=== PATIENT | female | born 1990 | race Hispanic/Latino ===

== ENCOUNTER 2016-10-14 10:30 | Emergency (ER) | payer OTHER, SELFPAY ==
[2016-10-14 10:49] LABS: Bilirubin Negative (Negative); Blood, Urine Moderate (Negative); Glucose, Urine (Dipstick) Negative (Negative); Ketone, Urine Negative (Negative); Nitrite Positive (Negative); Protein, Urine (Dipstick) 100 mg/dL (Neg-Trace); Urobilinogen 0.2 mg/dL (0.2-1.0)
[2016-10-14 10:57] LABS: Bacteria/HPF 2+ HPF (None Seen); RBC/HPF 0-3 HPF (0-3); Squamous Epithelial 0-3 HPF (0-3)
--- NOTE | 2016-10-14 11:20 | PICIS ---
[facility] EMERGENCY RECORD TRIAGE (10:34 CTUR) TRIAGE NOTES: Pt reports having low back pain for the past three days qwith worsening today. (10:34 CTUR) PATIENT: NAME: Vinicius Spence, AGE: 26, GENDER: female, : Sat 1990, TIME OF GREET: WedOct 14, 2016 10:30, PREFERRED LANGUAGE: Arabic, ETHNICITY: or , ECODE BILLING MAP: [facility], SSN: [id number], Zip Code: [address], KG WEIGHT: 58.97 (est.), , , PERSON ID: [id number]. (10:34 CTUR) PHONE: , PAYMENT: SJX Self Pay. (11:00) COMPLAINT: Low Back Pain. (10:34 CTUR) ADMISSION: URGENCY: 3 Urgent, ADMISSION SOURCE: Home, TRANSPORT: CAR, BED: TRIAGE. (10:34 CTUR) SIRS SCORING: Heart Rate 55-109 (0), Temp range 96.8-101.1 (0), respiratory rate 12-24 (0), Mental Status altered: no (0). (10:38 CTUR) TRIAGE SCREENING: Patient denies suicidal ideation, Patient denies presence of domestic violence. (10:38 CTUR) LMP: Last menstrual period: 10/08/2016. (10:38 CTUR) PROVIDERS: TRIAGE NURSE: Angie Vila RN. (10:34 CTUR) VITAL SIGNS: BP 131/82, Pulse 104, Resp 16, Temp 98.3, (Oral), Pain 8, O2 Sat 99, on Room Air, Time 10/14/2016 10:34. (10:34 CTUR) PREVIOUS VISIT ALLERGIES: NKDA. (10:34 CTUR) NKDA. (10:38 CTUR) KNOWN ALLERGIES NKDA CURRENT MEDICATIONS (10:39 CTUR) None VITAL SIGNS VITAL SIGNS: BP: 131/82, Pulse: 104, Resp: 16, Temp: 98.3 (Oral), Pain: 8, O2 sat: 99 on Room Air, Time: 10/14/2016 10:34. (10:34 CTUR) BP: 117/75, Pulse: 101, Resp: 16, Pain: 8, O2 sat: 96 on Room Air, Time: 10/14/2016 10:48. (10:48 CTUR) BP: 124/82, Pulse: 101, Resp: 16, Temp: 98.3 (Oral), Pain: 8, O2 sat: 97 on Room Air, Time: 10/14/2016 11:05. (11:05 CTUR) NURSING ASSESSMENT: GENITOURINARY (10:40 CTUR) CONSTITUTIONAL: Complex assessment performed, Patient arrives ambulatory, Gait steady, History obtained from patient, Patient appears comfortable, Patient cooperative, Patient alert, Oriented to person, place and time, Skin warm, Skin dry, Skin normal in color, Mucous membranes pink, Mucous membranes moist, Patient is well-groomed, Patient complains of Low back Pain, Patient reports for the past three days she has had severe low back pain with burning with urination and frequency pt states "I pee every ten minutes". PAIN FEMALE: Nothing has been tried to alleviate the &a-1R&a+25V*p+0X*s4514E*c202B*c15G*c2P*p-0X&a-25V&a+1R Name: Vinicius Spence : 1990 F26 MedRec: [id number] AcctNum: [id number] Prepared: WedOct 14, 2016 11:24 by Interface Page [address] [facility] EMERGENCY RECORD pain, aching pain, Low back, on a scale 0-10 patient rates pain as 8. NONVERBAL PAIN: Non-Verbal pain assessment findings include: No non-verbal complaints while at rest (0), Non-Verbal complaints present with movement (1), Facial Grimaces not present at rest (0), Facial grimaces present with movement (1), Bracing not present at rest (0), Bracing not present with movement (0), Restlessness not present at rest (0), Restlessness not present with movement (0), Rubbing not present at rest (0), Rubbing not present with movement (0), Result: 2. GENITOURINARY FEMALE: Associated with urinary complaints, burning, frequency, Date and time of last void: 10/14/2016 10:41, amount: 100mL, no associated vaginal discharge, no associated vaginal bleeding. ABDOMEN: Abdomen assessment findings include abdomen symmetrical, Abdomen soft, non-tender. SAFETY: Side rails up, Cart/Stretcher in lowest position, Call light within reach, Hospital ID band on. NURSING PROCEDURE: DISCHARGE NOTE (11:11 CTUR) DISCHARGE: Patient discharged to home, ambulating without assistance, driving self, unaccompanied, Summary of Care printed/ provided, Transition record given to patient, Discharge instructions given to patient, Simple or moderate discharge teaching performed, by NEDRA Brito, Prescriptions given and instructions on side effects given, Above person(s) verbalized understanding of discharge instructions and follow-up care, Patient treated and evaluated by physician. BELONGINGS: Belongings and valuables with patient upon arrival to the Emergency Department include:, Belongings and valuables with patient at time of discharge include:, Belongings remain with patient, Valuables remain with patient. SAFETY: Side rails up, Cart/Stretcher in lowest position, Call light within reach, Hospital ID band on. NURSING PROCEDURE: URINE COLLECTION (10:38 AHOO) PATIENT IDENTIFIER: Patient actively involved in identification process, Patient's identity verified by patient stating name, Patient's identity verified by patient stating date, Patient's identity verified by hospital ID bracelet. URINE COLLECTION FEMALE: Urine collection indicated for flank pain, Urine collected by mid-stream clean catch, Output amount (mL) 30, urine yellow in color, and cloudy, sediment noted, Specimen labeled in the presence of the patient and sent to lab, Specimen obtained for culture labeled in the presence of the patient and sent to lab. ORDER DETAILS &a-1R&a+25V*p+0X*u5180S*c202B*c15G*c2P*p-0X&a-25V&a+1R Name: Sylwia Spenceyuridia Luong : 1990 F26 MedRec: [id number] AcctNum: [id number] Prepared: WedOct 14, 2016 11:24 by Interface Page [address] [facility] EMERGENCY RECORD Order Name: Culture, Urine, Status: Active, Time: 10:56 10/14/2016, User: PAT, - Ordered for: MD Menchaca Jason, - Entered by: MD Menchaca Jason - WedOct 14, 2016 10:56, - Quantity: 1, Order Name: Test, Urine ([facility]), Status: Active, Time: 10:53 10/14/2016, User: PAT, - Ordered for: MD Menchaca Jason, - Entered by: MD Menchaca Jason - WedOct 14, 2016 10:53, - Quantity: 1, Order Name: Urinalysis with Microscopic, Status: Active, Time: 10:39 10/14/2016, User: [facility], - Ordered for: MD Menchaca Jason, - Entered by: NEDRA Mart, JanuaryOct 14, 2016 10:39, - Quantity: 1. HPI FLANK PAIN (10:42 [facility]) CHIEF COMPLAINT: Patient presents for evaluation of flank pain, on the right. HISTORIAN: History provided by patient, 26F presents to the ED with complaints of right flank pain that started today. States that for the past two days she has had UTI symptoms of burning and frequency. Denies abdominal pain. Has mild nausea, denies vomiting. Denies changes in bowel habits. LOCATION FEMALE: Symptoms are localized, most severe in the right flank. QUALITY: Pain is sharp in nature. TIME COURSE: Gradual onset of symptoms, Symptoms are worsening. ASSOCIATED WITH FEMALE: Associated with urinary tract infection signs or symptoms, dysuria, hesitancy. EXACERBATED BY: Patient's condition exacerbated by nothing. RELIEVED BY: Patient's condition relieved by nothing. ROS (10:47 [facility]) CONSTITUTIONAL: Negative constitutional review of systems, Historian denies chills, denies fever. EYES: Negative eye review of systems, Historian denies eye pain, denies vision changes. ENT: Negative ears, nose, throat review of systems, Historian denies rhinorrhea, denies sore throat, denies voice changes. CARDIOVASCULAR: Negative cardiovascular review of systems, Historian denies chest pain, denies palpitations. RESPIRATORY: Negative respiratory review of systems, Historian denies cough, denies shortness of breath. GI: Negative gastrointestinal review of systems, Historian denies abdominal pain, denies constipation, denies diarrhea, denies nausea, denies vomiting. GENITOURINARY FEMALE: Historian reports dysuria, reports frequency. Right flank pain. MUSCULOSKELETAL: Negative musculoskeletal review of systems, &a-1R&a+25V*p+0X*l6887N*c202B*c15G*c2P*p-0X&a-25V&a+1R Name: Vinicius Spence : 1990 F26 MedRec: [id number] AcctNum: [id number] Prepared: WedOct 14, 2016 11:24 by Interface Page [address] [facility] EMERGENCY RECORD Historian denies back pain, denies fall, denies injury. SKIN: Negative skin review of systems, Historian denies rash, denies skin changes. NEUROLOGIC: Negative neurologic review of systems, Historian denies headache, denies mental status changes, denies paralysis, denies paresthesias, denies sensory changes. HEMO/LYMPHATIC: Normal hematologic/lymphatic system review, Historian denies abnormal blood clotting. ALLERGIC/IMMUNOLOGIC: Normal allergy/immunologic system review, Historian denies frequent infections. PAST MEDICAL HISTORY (10:38 CTUR) MEDICAL HISTORY: Flu vaccine not up to date, Tetanus not up to date, Pneumococcal vaccine not up to date, No past medical history,. verified 10/14/16. FEMALE SURGICAL HISTORY: Surgical history of section, Notes: X 1. verified 10/14/16. PSYCHIATRIC HISTORY: No previous psychiatric history,. verified 10/14/16. SOCIAL HISTORY: Patient drinks socially, Patient has no smoking history, Patient denies drug use. verified 10/14/16. FAMILY HISTORY: Family history is non-contributory to this case. ((REVIEWED 02/02/14). PHYSICAL EXAM (10:47 [facility]) CONSTITUTIONAL: Vital signs reviewed, Patient afebrile, Pulse normal, Blood pressure normal, Respiratory rate normal, Patient appears non toxic, Patient appears pain free, Patient alert and oriented to person, place and time. HEAD: Head exam normal, Head exam included findings of head atraumatic, normocephalic. EYES: Eye exam normal, Eye exam included findings of eyelids normal to inspection, Pupils equally round and reactive to light, Extraocular muscles intact, no nystagmus. ENT: ENT exam normal, Ear exam normal, external ear normal, tympanic membranes normal, no bleeding, Pharynx exam normal, Uvula exam normal, Tonsil exam normal, Mouth exam normal, mucous membranes moist, teeth normal. NECK: Neck exam normal, Neck exam included findings of normal range of motion, Trachea midline, no meningeal signs, no cervical adenopathy, no tenderness. RESPIRATORY CHEST: Respiratory and chest exam normal, Respiratory exam included findings of no respiratory distress, Breath sounds clear. CARDIOVASCULAR: Cardiovascular assessment normal, Cardiovascular exam included findings of heart rate regular rate and rhythm, Heart sounds normal. ABDOMEN FEMALE: Abdominal exam included findings of abdomen nontender, Bowel sounds normal, no distension, no mass, no pulsatile masses, no peritoneal signs, no rigidity, no guarding, no rebound, &a-1R&a+25V*p+0X*v3936R*c202B*c15G*c2P*p-0X&a-25V&a+1R Name: Vinicius Spence : 1990 F26 MedRec: [id number] AcctNum: [id number] Prepared: WedOct 14, 2016 11:24 by Interface Page [address] [facility] EMERGENCY RECORD Rovsing's sign absent. BACK: Back exam normal, Back exam included findings of normal inspection, range of motion normal, Costovertebral angle tenderness, on the right, no tenderness. UPPER EXTREMITY: Upper extremity exam normal, Upper extremity exam included findings of inspection normal, Range of motion normal, Motor strength normal, Sensation intact, Radial pulse normal. LOWER EXTREMITY: Lower extremity exam normal, Lower extremity exam included findings of inspection normal, Range of motion normal, Motor strength normal, Sensation intact, Posterior tibial pulse normal, Pedal pulse normal. NEURO: Neuro exam normal, Neuro exam findings include patient oriented to person, place and time, Speech normal, Gait normal, Cranial nerves intact, no focal motor deficits, no focal sensory deficits. SKIN: Skin exam normal, Skin exam included findings of skin warm, dry, and normal in color, no rash. PSYCHIATRIC: Psychiatric exam normal, Normal affect. EVENTS TRANSFER: Triage to Emergency Triage. (WedOct 14, 2016 10:34 CTUR) Emergency Triage to Emergency Room -02. (10:34 CTUR) Removed from Emergency Emergency Room -02. (11:13 CTUR) DOCTOR NOTES (11:03 [facility]) TEXT: patient presented with findings consistent with pyelonephritis. No abdominal pain to raise concern for appendicitis or cholecystitis. Tolerating PO, appropriate for outpatient management. PATIENT STATUS: Patient has improved since arrival to emergency department. PATIENT PLAN: The patient will be discharged, The patient will follow up with primary care physician. DATA REVIEWED: Lab data reviewed. PROBLEM LIST No recorded problems DIAGNOSIS (11: [facility]) FINAL: PRIMARY: pyelonephritis. DISPOSITION PATIENT: Disposition Type: Discharge, Disposition: *Discharge Home. (11: [facility]) Patient left the department. (11:13 CT) INSTRUCTION (11: [facility]) DISCHARGE: PYELONEPHRITIS, FEMALE (ADULT). SPECIAL: Drink lots of fluids. Can keep taking the Azo. Follow &a-1R&a+25V*p+0X*f6158B*c202B*c15G*c2P*p-0X&a-25V&a+1R Name: Vinicius Spence : 1990 F26 MedRec: [id number] AcctNum: [id number] Prepared: WedOct 14, 2016 11:24 by Interface Page [address] [facility] EMERGENCY RECORD up with your regular doctor. Return if symptoms do not improve. PRESCRIPTION (11:00 [facility]) Keflex: CAPSULE (HARD, SOFT, ETC.) : 500 mg : ORAL : Quantity: 1 Unit: tab(s) Route: ORAL Schedule: 3 times a day Dispense: 30 May substitute. Refills: No Refills . NOTES: No refills. IMAGING *DISCHARGE INSTRUCTIONS RECEIPT: Image captured from scanner. (11:12 CT) *SUPPLY CHARGE SHEET: Image captured from scanner. (11:13 CT) ADMIN (11:05 [facility]) DIGITAL SIGNATURE: MD Menchaca Jason. Andersen: [facility]=NEDRA Mart, January CTUR=SINCERE Vila, Angie [facility]=MD Menchaca Jason &a-1R&a+25V*p+0X*m2655X*c202B*c15G*c2P*p-0X&a-25V&a+1R Name: Gail Spencegrace Luong : 1990 F26 MedRec: [id number] AcctNum: [id number] Prepared: Holly Oct 14, 2016 11:24 by Interface Page 6 of 6 pMD MTDD
--- NOTE | 2016-10-14 11:54 | ERRECORD ---
[facility] EMERGENCY RECORD HPI FL[facility] (10:42 [facility] CHIEF COMPLAINT: Patient presents for evaluation of flank pain, on the right. HISTORIAN: History provided by patient, 26F presents to the ED with complaints of right flank pain that started today. States that for the past two days she has had UTI symptoms of burning and frequency. Denies abdominal pain. Has mild nausea, denies vomiting. Denies changes in bowel habits. LOCATION FEMALE: Symptoms are localized, most severe in the right flank. QUALITY: Pain is sharp in nature. TIME COURSE: Gradual onset of symptoms, Symptoms are worsening. ASSOCIATED WITH FEMALE: Associated with urinary tract infection signs or symptoms, dysuria, hesitancy. EXACERBATED BY: Patient's condition exacerbated by nothing. RELIEVED BY: Patient's condition relieved by nothing. ROS (10:47 [facility]) CONSTITUTIONAL: Negative constitutional review of systems, Historian denies chills, denies fever. EYES: Negative eye review of systems, Historian denies eye pain, denies vision changes. ENT: Negative ears, nose, throat review of systems, Historian denies rhinorrhea, denies sore throat, denies voice changes. CARDIOVASCULAR: Negative cardiovascular review of systems, Historian denies chest pain, denies palpitations. RESPIRATORY: Negative respiratory review of systems, Historian denies cough, denies shortness of breath. GI: Negative gastrointestinal review of systems, Historian denies abdominal pain, denies constipation, denies diarrhea, denies nausea, denies vomiting. GENITOURINARY FEMALE: Historian reports dysuria, reports frequency. Right flank pain. MUSCULOSKELETAL: Negative musculoskeletal review of systems, Historian denies back pain, denies fall, denies injury. SKIN: Negative skin review of systems, Historian denies rash, denies skin changes. NEUROLOGIC: Negative neurologic review of systems, Historian denies headache, denies mental status changes, denies paralysis, denies paresthesias, denies sensory changes. HEMO/LYMPHATIC: Normal hematologic/lymphatic system review, Historian denies abnormal blood clotting. ALLERGIC/IMMUNOLOGIC: Normal allergy/immunologic system review, Historian denies frequent infections. PAST MEDICAL HISTORY (10:38 CTUR) MEDICAL HISTORY: Flu vaccine not up to date, Tetanus not up to date, Pneumococcal vaccine not up to date, No past medical history,. verified 10/14/16. FEMALE SURGICAL HISTORY: Surgical history of &a-1R&a+25V*p+0X*e1323L*c202B*c15G*c2P*p-0X&a-25V&a+1R Name: Vinicius Spence : 1990 F26 MedRec: [id number] AcctNum: [id number] Prepared: WedOct 14, 2016 11:18 by Interface Page 1 of 3 pMD [facility] EMERGENCY RECORD section, Notes: X 1. verified 10/14/16. PSYCHIATRIC HISTORY: No previous psychiatric history,. verified 10/14/16. SOCIAL HISTORY: Patient drinks socially, Patient has no smoking history, Patient denies drug use. verified 10/14/16. FAMILY HISTORY: Family history is non-contributory to this case. ((REVIEWED 02/02/14). KNOWN ALLERGIES NKDA CURRENT MEDICATIONS (10:39 CTUR) None VITAL SIGNS VITAL SIGNS: BP: 131/82, Pulse: 104, Resp: 16, Temp: 98.3 (Oral), Pain: 8, O2 sat: 99 on Room Air, Time: 10/14/2016 10:34. (10:34 CTUR) BP: 117/75, Pulse: 101, Resp: 16, Pain: 8, O2 sat: 96 on Room Air, Time: 10/14/2016 10:48. (10:48 CTUR) BP: 124/82, Pulse: 101, Resp: 16, Temp: 98.3 (Oral), Pain: 8, O2 sat: 97 on Room Air, Time: 10/14/2016 11:05. (11:05 CTUR) PHYSICAL EXAM (10:47 [facility]) CONSTITUTIONAL: Vital signs reviewed, Patient afebrile, Pulse normal, Blood pressure normal, Respiratory rate normal, Patient appears non toxic, Patient appears pain free, Patient alert and oriented to person, place and time. HEAD: Head exam normal, Head exam included findings of head atraumatic, normocephalic. EYES: Eye exam normal, Eye exam included findings of eyelids normal to inspection, Pupils equally round and reactive to light, Extraocular muscles intact, no nystagmus. ENT: ENT exam normal, Ear exam normal, external ear normal, tympanic membranes normal, no bleeding, Pharynx exam normal, Uvula exam normal, Tonsil exam normal, Mouth exam normal, mucous membranes moist, teeth normal. NECK: Neck exam normal, Neck exam included findings of normal range of motion, Trachea midline, no meningeal signs, no cervical adenopathy, no tenderness. RESPIRATORY CHEST: Respiratory and chest exam normal, Respiratory exam included findings of no respiratory distress, Breath sounds clear. CARDIOVASCULAR: Cardiovascular assessment normal, Cardiovascular exam included findings of heart rate regular rate and rhythm, Heart sounds normal. ABDOMEN FEMALE: Abdominal exam included findings of abdomen nontender, Bowel sounds normal, no distension, no mass, no pulsatile masses, no peritoneal signs, no rigidity, no guarding, no rebound, Rovsing's sign absent. BACK: Back exam normal, Back exam included findings of normal &a-1R&a+25V*p+0X*u5017G*c202B*c15G*c2P*p-0X&a-25V&a+1R Name: Vinicius Spence : 1990 F26 MedRec: [id number] AcctNum: [id number] Prepared: WedOct 14, 2016 11:18 by Interface Page 2 of 3 pMD [facility] EMERGENCY RECORD inspection, range of motion normal, Costovertebral angle tenderness, on the right, no tenderness. UPPER EXTREMITY: Upper extremity exam normal, Upper extremity exam included findings of inspection normal, Range of motion normal, Motor strength normal, Sensation intact, Radial pulse normal. LOWER EXTREMITY: Lower extremity exam normal, Lower extremity exam included findings of inspection normal, Range of motion normal, Motor strength normal, Sensation intact, Posterior tibial pulse normal, Pedal pulse normal. NEURO: Neuro exam normal, Neuro exam findings include patient oriented to person, place and time, Speech normal, Gait normal, Cranial nerves intact, no focal motor deficits, no focal sensory deficits. SKIN: Skin exam normal, Skin exam included findings of skin warm, dry, and normal in color, no rash. PSYCHIATRIC: Psychiatric exam normal, Normal affect. DOCTOR NOTES (11:03 [facility]) TEXT: patient presented with findings consistent with pyelonephritis. No abdominal pain to raise concern for appendicitis or cholecystitis. Tolerating PO, appropriate for outpatient management. PATIENT STATUS: Patient has improved since arrival to emergency department. PATIENT PLAN: The patient will be discharged, The patient will follow up with primary care physician. DATA REVIEWED: Lab data reviewed. PROBLEM LIST No recorded problems DIAGNOSIS (: [facility]) FINAL: PRIMARY: pyelonephritis. PRESCRIPTION (11: [facility]) Keflex: CAPSULE (HARD, SOFT, ETC.) : 500 mg : ORAL : Quantity: 1 Unit: tab(s) Route: ORAL Schedule: 3 times a day Dispense: 30 May substitute. Refills: No Refills . NOTES: No refills. DISPOSITION PATIENT: Disposition Type: Discharge, Disposition: *Discharge Home. (11: [facility]) Patient left the department. (11:13 [facility]) Andersen: YADIRA=SINCERE Vila, Angie [facility]=MD Bernarda, John &a-1R&a+25V*p+0X*d6357P*c202B*c15G*c2P*p-0X&a-25V&a+1R Name: Vinicius Spence : 1990 F26 MedRec: [id number] AcctNum: [id number] Prepared: WedOct 14, 2016 11:18 by Interface Page 3 of 3 pMD MTDD
== END 2016-10-14 11:09 | disposition home or self-care (01) ==
LOC: BURERS 10:30
DX: N12 Tubulo-interstitial nephritis, not specified as acute or chronic (principal)
CPT/HCPCS: 81001; 81025; 87077; 87086; 87186; 99284

== ENCOUNTER 2017-04-27 04:24 | Emergency (ER) | payer OTHER ==
[2017-04-27] MEDS ORDERED: Acetaminophen 500 MG TAB ONE (05:11)
[2017-04-27 05:16] LABS: Bilirubin Negative (Negative); Blood, Urine Negative (Negative); Clarity Slightly Cloudy (Clear); Glucose, Urine (Dipstick) Negative (Negative); Leukocyte Trace (Negative); Nitrite Negative (Negative); Protein, Urine (Dipstick) Negative (Neg-Trace); pH, Urine 6.5 (5.0-9.0)
[2017-04-27 05:25] LABS: Bacteria/HPF Rare-Few HPF (None Seen); RBC/HPF None Seen HPF (0-3); Squamous Epithelial 0-3 HPF (0-3); WBC/HPF 0-3 HPF (0-3)
== END 2017-04-27 06:01 | disposition home or self-care (01) ==
LOC: BURERS 04:24
DX: O47.02 False labor before 37 completed weeks of gestation, second trimester (principal); Z3A.16 16 weeks gestation of pregnancy
CPT/HCPCS: 81003; 81015; 96360

== ENCOUNTER 2021-04-21 16:09 | Outpatient (CLI) | payer OTHER | END 2021-04-21 16:10 | disposition home or self-care (01) | LOC: BURRAD 16:09 | PROVIDERS: ATTEND Clinical Nurse Specialist Medical-Surgical | DX: R05 Cough (principal) | CPT/HCPCS: 71046 ==

== ENCOUNTER 2022-09-12 15:52 | Emergency (ER) | payer OTHER | END 2022-09-12 17:35 | disposition home or self-care (01) | LOC: BURERS 15:52 | DX: J10.1 Influenza due to other identified influenza virus with other respiratory manifestations (principal); Z20.822 Contact with and (suspected) exposure to COVID-19 | CPT/HCPCS: 87081; 87430; 87804; 99283; U0003; U0005 ==

== ENCOUNTER 2024-04-07 20:18 | Emergency (ER) | payer OTHER ==
[2024-04-07] MEDS ORDERED: Lidocaine Viscous Sol 2% 15 ml UD Cup ONE (20:32)
[2024-04-07] MEDS ORDERED: Clindamycin 150 MG CAP ONE (21:12)
== END 2024-04-07 21:38 | disposition home or self-care (01) ==
LOC: BURERS 20:18
DX: K04.7 Periapical abscess without sinus (principal); K02.9 Dental caries, unspecified
CPT/HCPCS: 99282